=== PATIENT | female | born 1995 | race Caucasian/White ===

== ENCOUNTER → 2018-12-31 | Outpatient (CLI) | payer SELFPAY ==
[2018-12-31 20:38] LABS: Chlamydia Trachomatis by PCR Negative (Negative); Neisserai gonorrhoeae by PCR Negative (Negative); Probe Check PASS; Sample Adequacy Control PASS; Specimen Processing Control PASS
[2019-01-05 12:14] LABS: HPV Reflexed? NOT INDICATED
== END | disposition home or self-care (01) ==
PROVIDERS: Referring Provider Obstetrics & Gynecology; Visit Provider Obstetrics & Gynecology
DX: Z11.3 Encounter for screening for infections with a predominantly sexual mode of transmission (principal); Z12.4 Encounter for screening for malignant neoplasm of cervix
CPT/HCPCS: 87491; 87591; 87624; 88175; G0145

== ENCOUNTER → 2019-01-31 | Outpatient (CLI) | payer OTHER, SELFPAY ==
[2016-05-04 07:36] VITALS: BMI 39.8
[2019-01-31 13:33] LABS: Absolute Lymphocyte Count 1.36 X10^3/uL (0.83-4.51); Absolute Neutrophil Count 4.4 X10^3/uL (2.0-7.7); Basophil# 0.02 X10^3/uL; Basophil% 0.3 % (0-1); Eosinophil# 0.04 X10^3/uL; Eosinophils% 0.6 % (0-5); Hematocrit 43.2 % (37-47); Hemoglobin 14.4 g/dL (12.0-15.0); Lymphocyte # 1.36 X10^3/ul (4.0); Lymphocyte % 21.8 % (19-41); Mean Corp Hgb Conc 33.3 g/dL (32-36); Mean Corpuscular Hgb 30.1 pg (27.0-32.0); Mean Corpuscular Volume 90.4 fL (81-99); Mean Platelet Vol. 10.1 fl (6.2-12.0); Monocyte# 0.39 X10^3/uL; Monocyte% 6.2 % (0-10); NRBC Flagged by Analyzer 0 % (0-5); Neutrophil # 4.43 X10^3/uL (2.7-7.7); Neutrophil % 70.9 % (47-70); Platelet Count 255 K/mm3 (150-450); RBC Distribution Width CV 13.2 % (11.6-14.6); RBC Distribution Width SD 43.9 fl (35.1-43.9); Red Blood Count 4.78 M/mm3 (4.2-5.4); White Blood Count 6.3 K/mm3 (4.4-11.0)
[2019-01-31 13:37] LABS: Color, Urine Yellow (Yellow); Glucose, Dipstick Normal (Normal); Ketone-Dipstick Negative (Negative); Leukocyte Esterase-Dipstick Negative /ul (Negative); Nitrite-Dipstick Negative (Negative); Occult Blood-Urine 50 /ul (Negative); Protein-Dipstick Negative (Negative); Urine Bilirubin Dipstick Negative (Negative); Urine Clarity Clear (Clear); Urine Urobilinogen Normal (Normal)
[2019-01-31 13:50] LABS: Amphetamine Urine VISTA NEGATIVE (<1000 ng/mL); Barbiturate Urine VISTA NEGATIVE (< 200 ng/mL); Benzodiazepine Urine VISTA NEGATIVE (< 200 ng/mL); Cocaine Urine VISTA NEGATIVE (< 300 ng/mL); Ecstacy Urine VISTA NEGATIVE (< 500 ng/mL); Methadone Urine VISTA NEGATIVE (< 300 ng/mL); PCP Urine VISTA NEGATIVE (< 25 ng/mL); THC Urine VISTA NEGATIVE (< 50 ng/mL); Vista UDS pH Range 5
[2019-01-31 13:53] LABS: Thyroid Stim Hormone (TSH) 4.06 uIU/mL (0.358-3.74)
[2019-01-31 14:36] LABS: HIV - WCH Non-Reactive (Nonreactive); Hepatitis B Surface Antigen Non-Reactive (Nonreactive); Hepatitis C Antibody Non-Reactive (Nonreactive); Rubella IgG 84.4 IU/mL
[2019-01-31 17:35] LABS: T4 Free Direct 0.82 ng/dL (0.76-1.46)
[2019-02-04 01:54] LABS: Prenatal RPR NONREACTIVE (NONREACTIVE)
[2019-02-04 16:01] LABS: Anti-Thyroglobulin AB < 1.0 IU/mL (0.0-0.9); Thyroglobulin, Serum Qt. 55.2 ng/mL (1.5-38.5); Thyroid Peroxidase AB 293 IU/mL (0-34)
== END | disposition home or self-care (01) ==
PROVIDERS: Visit Provider Obstetrics & Gynecology
DX: O28.8 Other abnormal findings on antenatal screening of mother (principal); Z3A.00 Weeks of gestation of pregnancy not specified
CPT/HCPCS: 36415; 80307; 81002; 82306; 84432; 84439; 84443; 84481; 85025; 86376; 86703; 86762; 86800; 86803; 87340

== ENCOUNTER → 2019-03-31 10:29 | Outpatient (CLI) | payer SELFPAY ==
[2016-05-04 07:36] VITALS: BMI 39.8
[2019-03-31 11:37] LABS: Free T3 2.2 pg/mL (2.18-3.98); T4 Free Direct 1.01 ng/dL (0.76-1.46); T4 Total, Thyroxin 14.6 ug/dL (4.8-13.9); Thyroid Stim Hormone (TSH) 1.85 uIU/mL (0.358-3.74)
[2019-04-04 20:11] LABS: Anti-Thyroglobulin AB < 1.0 IU/mL (0.0-0.9); Thyroglobulin, Serum Qt. 22.7 ng/mL (1.5-38.5); Thyroid Peroxidase AB 176 IU/mL (0-34)
== END ==
PROVIDERS: Visit Provider Obstetrics & Gynecology
DX: E03.9 Hypothyroidism, unspecified (principal)
CPT/HCPCS: 36415; 84432; 84436; 84439; 84443; 84481; 86376; 86800

== ENCOUNTER → 2019-05-19 09:02 | Outpatient (CLI) | payer SELFPAY ==
[2019-05-19 11:12] LABS: Hematocrit 40.2 % (37-47); Hemoglobin 13.1 g/dL (12.0-15.0); Mean Corp Hgb Conc 32.6 g/dL (32-36); Mean Corpuscular Hgb 30.4 pg (27.0-32.0); Mean Corpuscular Volume 93.3 fL (81-99); Mean Platelet Vol. 9.8 fl (6.2-12.0); Platelet Count 253 K/mm3 (150-450); RBC Distribution Width SD 44.6 fl (35.1-43.9); Red Blood Count 4.31 M/mm3 (4.2-5.4); White Blood Count 8.9 K/mm3 (4.4-11.0)
[2019-05-19 11:32] LABS: Glucose Challenge Gest 1H 50g 139 mg/dL (70-140); Thyroid Stim Hormone (TSH) 1.46 uIU/mL (0.358-3.74)
[2019-05-19 11:33] LABS: Vitamin D,25 Hydroxy 17.7 ng/mL (29.95-100.01)
== END ==
PROVIDERS: Referring Provider Obstetrics & Gynecology; Visit Provider Obstetrics & Gynecology
DX: Z34.83 Encounter for supervision of other normal pregnancy, third trimester (principal); E55.9 Vitamin D deficiency, unspecified
CPT/HCPCS: 36415; 82306; 82950; 84443; 85027

== ENCOUNTER → 2019-07-06 12:02 | Outpatient (CLI) | payer OTHER, SELFPAY ==
[2016-05-04 07:36] VITALS: BMI 39.8
== END ==
PROVIDERS: Visit Provider Obstetrics & Gynecology
DX: Z36.85 Encounter for antenatal screening for Streptococcus B (principal)
CPT/HCPCS: 87081

== ENCOUNTER 2019-07-29 19:20 | Inpatient (IN) | payer SELFPAY ==
[2019-07-29 19:48] VITALS: BP 139/78; PULSE 90; PULSE 97; TEMP 36.8; O2SAT 96
[2019-07-29] MEDS: 0.9% Saline Lock 10 ML Syringe IV (19:55)
--- NOTE | 2019-07-29 20:00 | PCM.HP.OB ---
- Problem List (1) 39 weeks gestation of Status: Acute (2) Gestational hypertension Status: Acute Qualifiers: Trimester: third trimester Qualified Code(s): O13.3 - Gestational [-induced] hypertension without significant proteinuria, third trimester (3) Obesity complicating Status: Acute Qualifiers: Trimester: third trimester Qualified Code(s): O99.213 - Obesity complicating , third trimester History Date of Admission: 07/29/19 Final AMAURY: 08/03/19 Final AMAURY Source: US <20 weeks Gestational age: 39 Weeks and 2 Days History of this : This is a 23 year-old, G [1], P [], at 39 2/7 weeks gestational age with gestational hypertension, BMI 49 presenting for scheduled induction of labor. Medical History: Medical History (This Medical Record has been edited. 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 Allergies No Known Allergies Allergy (Verified 01/04/19 08:18) Home Medications: Home Medications Famotidine [Pepcid] 20 mg PO BID #14 tablet 05/04/16 Hydrocodone Bitart/Apap 5-325 [[place] 5/325] 1 - 2 tablet PO Q4H PRN PRN #12 tablet 05/04/16 Smoking Status: Never smoker Alcohol: None Number of Fetus(es): 1 NST - FHR Rate Baby A Baseline: 150 Variability:: Moderate Accelerations:: 15 x 15 Decelerations:: None NST Reactive:: Yes FHR Category:: Category I Uterine Activity:: 2-4/10 min History Past Pregnancies: Past Pregnancies Delivery Date Name GA/ Weeks Outcome Route Wt Sex Labor Length Anesthesia Delivery Location Provider FOB Labs: Mom's Problem List Problem Status Onset Code 39 weeks gestation of Acute Z3A.39 Gestational hypertension Acute O13.9 Obesity complicating Acute O99.210 Mom's Labs & Results 07/29/19 07/29/19 19:55 19:55 WBC 9.9 RBC 4.02 L Hgb 12.4 Hct 37.4 MCV 93.0 MCH 30.8 MCHC 33.2 RDW Std Deviation 44.6 H RDW Coeff of [place] 13.1 Plt Count 260 MPV 10.1 Immature Gran % (Auto) 0.300 Neut % (Auto) 76.9 H Lymph % (Auto) 17.0 L [place] % (Auto) 5.4 Eos % (Auto) 0.2 Baso % (Auto) 0.2 Absolute Neuts (auto) 7.6 Absolute Lymphs (auto) 1.69 Nucleated RBC % 0 Blood Type A POSITIVE Antibody Screen NEGATIVE Course Did the patient receive Yes care? Labs Blood Type: A RH: POSITIVE RPR/VDRL/Syphilis Nonreactive Rubella status Immune HbSAg Negative Date Done: 01/31/19 Chlamydia Negative Gonorrhea Negative HIV/AIDS Non-Reactive Group B Strep: Negative Current Obstetrical History Gestational Diabetes No Incompetent Cervix No Infertility No IUGR No Macrosomia No Hypertension/Pre-eclampsia Yes: no medications Placenta Previa/Abruption Yes: marginal previa that is resolved PTL/PROM No Uterine anomaly No Oligohydramnios No Polyhydramnios No Multiple gestation No Past Medical History Asthma No Diabetes No Hypertension No Heart disease No Mitral valve prolapse No Neurologic/Seizure disorder/ No Migraines Kidney disease No Liver disease No Varicosities No Clotting disorders/Hx of DVT No Thyroid Dysfunction Yes: hypothyroidism - autoimmune Other medical diseases No Psychiatric disorders No Major trauma No Abnormal PAP smear No Sleep apnea No Mammogram in the last 2 years No Social History Marital Status: Alleged father Jimy Hx Smoking No Smoking Status Never smoker Physical Exam Vitals: Vital Signs Temp Pulse BP Pulse Ox 98.3 F 90 139/78 H 96 07/29/19 19:48 07/29/19 19:48 07/29/19 19:48 07/29/19 19:48 General: Alert, Oriented x3, Cooperative, No apparent distress HEENT: Atraumatic, Normocephalic Cardiovascular: Regular rate, Regular Rhythm Lungs: Clear to auscultation, Normal air movement Abdomen: Soft, Non Tender, Non-Distended, Gravid Extremities:: No edema Neurological: Neuro grossly intact OUTPATIENT FACILITY PHYSICAL THERAPIST: Normal external genitalia Estimated gestational size: Appropriate for gestational size Presentation: Cephalic Cervix Dilation (cm): 1 Station: -3 Effacement (%): 0 Assessment/Plan All Active Problems (This Medical Record has been edited. Action required.) 39 weeks gestation of (Acute) Gestational hypertension (Acute) Obesity complicating (Acute) This is a 23 year-old, G [1], P [], at 39 2/7 weeks gestational age, Cat I FHR -Cytotec, pastor bulb
[2019-07-29 20:19] LABS: Absolute Lymphocyte Count 1.69 X10^3/uL (0.83-4.51); Absolute Neutrophil Count 7.6 X10^3/uL (2.0-7.7); Basophil# 0.02 X10^3/uL; Basophil% 0.2 % (0-1); Eosinophil# 0.02 X10^3/uL; Eosinophils% 0.2 % (0-5); Hematocrit 37.4 % (37-47); Hemoglobin 12.4 g/dL (12.0-15.0); Lymphocyte # 1.69 X10^3/ul (4.0); Mean Corp Hgb Conc 33.2 g/dL (32-36); Mean Corpuscular Hgb 30.8 pg (27.0-32.0); Mean Platelet Vol. 10.1 fl (6.2-12.0); Monocyte# 0.54 X10^3/uL; Monocyte% 5.4 % (0-10); NRBC Flagged by Analyzer 0 % (0-5); Neutrophil # 7.64 X10^3/uL (2.7-7.7); Neutrophil % 76.9 % (47-70); Platelet Count 260 K/mm3 (150-450); RBC Distribution Width CV 13.1 % (11.6-14.6); RBC Distribution Width SD 44.6 fl (35.1-43.9); Red Blood Count 4.02 M/mm3 (4.2-5.4); White Blood Count 9.9 K/mm3 (4.4-11.0)
[2019-07-29 20:23] VITALS: BMI 49.1
[2019-07-29] MEDS: 0.9% Normal Saline Single 100 ML IV.SOLN. IY (20:36)
[2019-07-29] MEDS: miSOPROStol 25 MCG TABLET VAGINAL (20:37)
[2019-07-30] VITALS (64 sets, daily range): BP systolic 115–156; BP diastolic 59–84; PULSE 68–109; RESP 18; TEMP 36.3–37.2; O2SAT 79–100
[2019-07-30] MEDS: Oxytocin 30 units/NS 500 ml 30 UNITS/500 ML IV.SOLN IV (00:45)
[2019-07-30] MEDS: Lactated Ringers 1,000 ML 50 ML IV ×2 (00:45→12:16)
[2019-07-30] MEDS: 0.9% Saline Lock 10 ML Syringe IV (00:45)
[2019-07-30] MEDS: Lactated Ringers 500 ML 999 ML IV (07:15)
--- NOTE | 2019-07-30 07:16 | PCM.PN.BLA ---
Progress Note LABOR PROGRESS NOTE Contractions are mild to moderate. No complaints. AVSS GEN - NAD, AAO x 3 FHR 155, moderate variability, + accelerations, + variable decelerations TOCO 4/ 10 min A/P: 23yo G1 @ 39 3/7wga, gestational HTN, IOL, Cat II FHR -Maternal and statuses overall reassuring -Amniotomy performed, IUPC placed -Continue pitocin as tolerated by mother and fetus STROKE Vital Signs/Narrative: Vital Signs Temp Pulse BP Pulse Ox 07/30/19 07:05 75 132/79 H 07/30/19 06:08 97.9 F 74 125/75 H 97 07/30/19 05:11 97.4 F L 85 121/75 H 97 07/30/19 04:06 97.9 F 78 134/73 H 97
[2019-07-30] MEDS: fentaNYL-bupivacaine (epidural) 100 ML BAG EPIDURAL ×2 (08:30→13:01)
--- NOTE | 2019-07-30 11:57 | PCM.PN.BLA ---
Progress Note LABOR PROGRESS NOTE No complaints, comfortable with epidural. AVSS GEN - NAD, AAO x 3 FHR 160, moderate variability, no accelerations, + variable deceleration TOCO 3/10 min SVE 4/80/-3, caput present - unable to palpate fontanelles US performed confirming cephalic presentation, OP A/P: 23yo G1 @ 39 3/7wga IOL with gHTN, Cat II FHR -ISE placed -Start amnioinfusion -Pitocin held -Monitor closely STROKE Vital Signs/Narrative: Vital Signs Temp Pulse BP Pulse Ox 07/30/19 11:00 97.9 F 87 131/65 H 07/30/19 10:23 75 124/59 H 100 07/30/19 09:14 68 121/65 H 100 07/30/19 09:09 71 100 07/30/19 09:08 70 130/61 H 07/30/19 09:04 87 100 07/30/19 09:03 71 126/59 H 07/30/19 08:59 77 100 07/30/19 08:57 77 125/62 H 07/30/19 08:54 74 127/63 H 100 07/30/19 08:48 81 133/62 H 95 07/30/19 08:47 79 07/30/19 08:43 88 156/83 H 07/30/19 08:42 77 92 07/30/19 08:40 74 149/74 H 07/30/19 08:38 97 129/77 H 07/30/19 08:37 70 93 07/30/19 08:33 86 141/71 H 07/30/19 08:31 78 99 07/30/19 08:14 92 99
[2019-07-30] MEDS: Amnioinfusion- 0.9% NS 1,000 ML IV.SOLN. 300 ML INTRA-UTER (12:01)
[2019-07-30] MEDS: Oxytocin 30 units/NS 500 ml 30 UNITS/500 ML IV.SOLN 334 UNITS IV (15:40)
--- NOTE | 2019-07-30 16:09 | PCM.OPRPT ---
Problem List (1) 39 weeks gestation of Status: Acute (2) Gestational hypertension Status: Acute Qualifiers: Trimester: third trimester Qualified Code(s): O13.3 - Gestational [-induced] hypertension without significant proteinuria, third trimester (3) Obesity complicating Status: Acute Qualifiers: Trimester: third trimester Qualified Code(s): O99.213 - Obesity complicating , third trimester Vaginal Delivery Maternal Presentation: Medically Indicated Induction Method of Induction: Pitocin, Tucker Bulb, Amniotomy, Cytotec Medical Reason for Induction: Gestational Hypertension Amniotic Membrane Rupture Type: Artificial Rupture of Membrane time: 07/30/19 0659h Amniotic Fluid Description: Clear Final AMAURY: 08/03/19 Final AMAURY Source: US <20 weeks Gestational age: 39 Weeks and 3 Days doctor who attended delivery (if requested by OB): Feli Cuello Date of Procedure: 07/30/19 Pre-Operative Diagnosis: 39 3/7wga, gestational hypertension Post-Operative Diagnosis: 39 3/7wga, gestational hypertension Surgery/ Procedure Performed: Spontaneous Vaginal Delivery Anesthesiologist: Ana Hudson Type of Anesthesia: Epidural Description of Procedure: Patient was FD/+3 station on my arrival. She pushed to deliver a vigorous female over an intact perineum. The was placed on the maternal abdomen and further attended by nursery personnel. The cord was doubly clamped and cut. Cord gases were obtained. The placenta delivered spontaneously and appeared intact on inspection. A vaginal laceration was repaired with 3-0 Vicryl Rapide. Excellent hemostasis present. Sponge and needle counts correct x 2. Presentation: Vertex Placental Delivery Description: Spontaneous Placenta Disposition: [facility] Cord Vessel Description: 3 Vessels Nuchal Cord Compression: Without compression Cord Gases drawn per routine: ABG, VBG Cord Entanglement: None Drain: Tucker to straight drain Estimated Blood Loss: 350 ml A gender: Female (1 minute): 8 (5 minute): 9 Episiotomy Description: None Laceration: None Medications given after delivery: IV Pitocin Complications: None
[2019-07-30] MEDS: Acetaminophen 500 MG Tablet 1000 MG PO (18:07)
--- NOTE | 2019-07-30 20:39 | NURSING ---
areas of reddness is from novii telemetry unit used in labor
[2019-07-30] MEDS: Senna/Docusate Sodium 1 Tablet PO (21:38)
[2019-07-31 04:50] VITALS: BP 136/88; PULSE 89; RESP 18; TEMP 36.7
[2019-07-31] MEDS: Levothyroxine 50 MCG Tablet PO (05:49)
[2019-07-31] MEDS: Acetaminophen 500 MG Tablet 1000 MG PO (06:19)
[2019-07-31 09:12] VITALS: BP 114/51; PULSE 80; RESP 16; TEMP 36.6
--- NOTE | 2019-07-31 10:23 | PCM.PN.OB ---
Patient Problems: Active and Suspected Problems (This Medical Record has been edited. Action required.) 39 weeks gestation of (Acute) Gestational hypertension (Acute) Obesity complicating (Acute) Subjective: No issues overnight. , working on latch and feeding. Patient is sore, but denies significant pain. She is out of bed, voiding w/o difficulty. Denies heavy lochia. Objective: avss - Physical Exam Vitals/I&O's: Vital Signs Temp Pulse Resp BP Pulse Ox 97.8 F 80 16 114/51 L 100 07/31/19 09:12 07/31/19 09:12 07/31/19 09:12 07/31/19 09:12 07/30/19 17:52 Oxygen Delivery Method Room Air Weight: 129.727 kg Body Mass Index (BMI) 49.1 Intake and Output for Last 24 Hours 07/29/19 07/30/19 07/31/19 23:59 23:59 23:59 Intake Total 2034.03 / 2034.03 Output Total 700 / 700 200 / 200 Balance 1334.03 / 1334.03 -200 / -200 General: Alert, Oriented x3, Cooperative, No apparent distress HEENT: Atraumatic, Normocephalic Lungs: Clear to auscultation, Normal air movement Cardiovascular: Regular rate, Regular Rhythm, Normal S1, Normal S2 Abdomen: Soft, Non Tender, Non-Distended, - - fundus firm and nontender, lochia scant Extremities: No Calf Tenderness, - - +1 b/l LE edema Neurological: Neuro grossly intact Psych/Mental Status: Normal Affect, Appropriate, Alert and oriented to time, place, person, mood and affect Current Medications Acetaminophen (Tylenol) 325 - 650 mg PO Q4H PRN PRN PRN Reason: Pain Score 1-3/10 Acetaminophen (Tylenol) 1,000 mg PO Q8H PRN PRN PRN Reason: Pain Score 1-3/10 Last Admin: 07/31/19 06:19 Dose: 1,000 mg Documented by: Bisacodyl (Dulcolax) 10 mg RECTAL UD PRN PRN Reason: If no BM Dibucaine (Dibucaine) 1 applic TOPICAL TID PRN PRN; Protocol PRN Reason: Discomfort Hydrocortisone (Hytone) 1 applic TOPICAL TID PRN PRN; Protocol PRN Reason: Discomfort Levothyroxine Sodium (Synthroid) 50 mcg PO DAILY@0600 ALBERTO Last Admin: 07/31/19 05:49 Dose: 50 mcg Documented by: Methylergonovine Maleate (Methergine) 0.2 mg IM X1 PRN PRN Reason: Excess bleeding/uterine atony Multivit/Folic Acid/Iron (Prenatabs Fa) 1 tablet PO DAILY@1200 ALBERTO Senna/Docusate Sodium (Senokot-S, Lauren-Colace) 1 - 2 tablet PO DAILY PRN PRN PRN Reason: Constipation Last Admin: 07/30/19 21:38 Dose: 2 tablet Documented by: Simethicone (Mylicon) 80 mg PO PCHS PRN PRN Reason: Indigestion/Stomach pain Sodium Chloride () 5 - 15 ml IV UD PRN PRN Reason: SALINE FLUSH Medical Necessity - Tobacco Use Smoking Status: Never smoker Assessment/Plan All Active Problems (This Medical Record has been edited. Action required.) 39 weeks gestation of (Acute) Gestational hypertension (Acute) Obesity complicating (Acute) This is a 23 year-old, G [1], P [1] PPD#1 s/p doing well. -Rh positive - -Routine care -Discharge home this afternoon if feeds well and is clear for discharge.
[2019-07-31] MEDS: Prenatal Vits Tablet 1 TABLET PO (13:26)
[2019-07-31 13:27] VITALS: BP 133/66; PULSE 90; RESP 18; TEMP 36.5
--- NOTE | 2019-07-31 19:31 | DCINST_ITS ---
Discharge Diet: No Restrictions Discharge Activity: Return to Normal Activity, May Shower, May Take a Tub Bath May resume sexual activity in: 4-6 weeks Lifting Restrictions: 10-20 lb Additional Instructions: If you experience any of the following, contact your healthcare provider. * Bleeding that soaks a pad every hour for 2 hours * Fever 100.4 or higher * Unrelieved incision or abdominal pain * Swelling, redness, discharge or bleeding from your incision or episiotomy site * Your incision begins to separate * Problems urinating (including inability to urinate or burning while urinating). * Visual changes * Severe headache * Flu-like symptoms * Pain or redness in one of both of your breasts * Pain, warmth, tenderness or swelling in your legs, especially the calf area * Frequent nausea and vomiting * Symptoms of depression or anxiety If you experience any of the following, call 911 or go to the nearest Emergency Room. * Chest pain * Problems breathing * Seizure activity * Partial or complete paralysis of a body part, slurred speech, weakness or drooping of the face, or a sudden inability to walk or hold your balance Allergies/Adverse Reactions: Allergies No Known Allergies Allergy (Verified 07/29/19 21:27) Medications to take at Discharge Cholecalciferol (Vitamin D3) [Vitamin D3] 400 unit PO DAILY 07/29/19 Levothyroxine [Synthroid] 50 mcg PO DAILY 07/29/19 Vit No.130/Iron/Folic [ Tablet] 1 tab PO DAILY 07/29/19 Please Follow Up With: Vaishali Ornelas MD - Call to schedule a telehealth visit When: 2 weeks Primary Care Physician: Care Physician,No Primary [Primary Care Provider] - Test Results: Test results from this visit will be discussed in further detail at your follow- up appointment, if applicable.
--- NOTE | 2019-07-31 19:31 | PCM.DCVAG ---
Discharge Diet: No Restrictions Discharge Activity: Return to Normal Activity, May Shower, May Take a Tub Bath May resume sexual activity in: 4-6 weeks Lifting Restrictions: 10-20 lb Additional Instructions: If you experience any of the following, contact your healthcare provider. Bleeding that soaks a pad every hour for 2 hours Fever 100.4 or higher Unrelieved incision or abdominal pain Swelling, redness, discharge or bleeding from your incision or episiotomy site Your incision begins to separate Problems urinating (including inability to urinate or burning while urinating). Visual changes Severe headache Flu-like symptoms Pain or redness in one of both of your breasts Pain, warmth, tenderness or swelling in your legs, especially the calf area Frequent nausea and vomiting Symptoms of depression or anxiety If you experience any of the following, call 911 or go to the nearest Emergency Room. Chest pain Problems breathing Seizure activity Partial or complete paralysis of a body part, slurred speech, weakness or drooping of the face, or a sudden inability to walk or hold your balance Allergies/Adverse Reactions: Allergies No Known Allergies Allergy (Verified 07/29/19 21:27) Medications to take at Discharge Cholecalciferol (Vitamin D3) [Vitamin D3] 400 unit PO DAILY 07/29/19 Levothyroxine [Synthroid] 50 mcg PO DAILY 07/29/19 Vit No.130/Iron/Folic [ Tablet] 1 tab PO DAILY 07/29/19 Please Follow Up With: Vaishali Ornelas MD - Call to schedule a telehealth visit When: 2 weeks Primary Care Physician: Care Physician,No Primary [Primary Care Provider] - Test Results: Test results from this visit will be discussed in further detail at your follow-up appointment, if applicable.
[2019-07-31 19:45] VITALS: BP 136/74; PULSE 88; RESP 17; TEMP 37
== END 2019-07-31 20:05 | disposition home or self-care (01) | DRG 807 ==
PROVIDERS: Admitting Provider Obstetrics & Gynecology; Referring Provider Obstetrics & Gynecology; Visit Provider Obstetrics & Gynecology
DX: O13.4 Gestational [pregnancy-induced] hypertension without significant proteinuria, complicating childbirth (principal); Z37.0 Single live birth; E66.9 Obesity, unspecified; O99.214 Obesity complicating childbirth; Z3A.39 39 weeks gestation of pregnancy; E03.9 Hypothyroidism, unspecified; O99.284 Endocrine, nutritional and metabolic diseases complicating childbirth; O76 Abnormality in fetal heart rate and rhythm complicating labor and delivery; O71.4 Obstetric high vaginal laceration alone
CPT/HCPCS: 59025; 59050; 85025; 86850; 86900; 86901; 99218; J7030; J7120; A4216; G0378

== ENCOUNTER → 2019-09-13 14:37 | Outpatient (CLI) | payer OTHER, SELFPAY ==
[2019-09-13 15:49] LABS: T4 Free Direct 1.11 ng/dL (0.76-1.46); Thyroid Stim Hormone (TSH) 1.53 uIU/mL (0.358-3.74)
== END ==
PROVIDERS: Visit Provider Obstetrics & Gynecology
DX: E03.9 Hypothyroidism, unspecified (principal)
CPT/HCPCS: 36415; 84439; 84443; 84481

== ENCOUNTER → 2020-01-03 10:08 | Outpatient (CLI) | payer OTHER, SELFPAY ==
[2020-01-03 11:51] LABS: T3 Total - Triiodothyronine 1.13 ng/mL (0.6-1.81)
[2020-01-03 11:56] LABS: Free T3 2.7 pg/mL (2.18-3.98); T4 Free Direct 1.04 ng/dL (0.76-1.46); Thyroid Stim Hormone (TSH) 1.89 uIU/mL (0.358-3.74)
== END ==
PROVIDERS: Visit Provider Obstetrics & Gynecology
DX: E03.9 Hypothyroidism, unspecified (principal)
CPT/HCPCS: 36415; 84439; 84443; 84480; 84481

== ENCOUNTER → 2022-04-17 | Outpatient (CLI) | payer OTHER, SELFPAY ==
[2022-04-17 16:19] LABS: Absolute Lymphocyte Count 1.56 X10^3/uL (0.83-4.51); Absolute Neutrophil Count 4.8 X10^3/uL (2.0-7.7); Basophil# 0.03 X10^3/uL; Basophil% 0.4 % (0-1); Eosinophil# 0.04 X10^3/uL; Eosinophils% 0.6 % (0-5); Hematocrit 40.8 % (37-47); Hemoglobin 14.2 g/dL (12.0-15.0); Lymphocyte # 1.56 X10^3/ul (0.83-4.51); Lymphocyte % 23.1 % (19-41); Mean Corp Hgb Conc 34.8 g/dL (32-36); Mean Corpuscular Hgb 31.2 pg (27.0-32.0); Mean Corpuscular Volume 89.7 fL (81-99); Mean Platelet Vol. 10.2 fl (6.2-12.0); Monocyte# 0.33 X10^3/uL; Monocyte% 4.9 % (0-10); NRBC Flagged by Analyzer 0 % (0-5); Neutrophil # 4.76 X10^3/uL (2.7-7.7); Neutrophil % 70.7 % (47-70); Platelet Count 267 K/mm3 (150-450); RBC Distribution Width CV 12.4 % (11.6-14.6); RBC Distribution Width SD 40.8 fl (35.1-43.9); Red Blood Count 4.55 M/mm3 (4.2-5.4); White Blood Count 6.7 K/mm3 (4.4-11.0)
[2022-04-17 17:17] LABS: HIV - WCH Non-Reactive (Nonreactive); Hepatitis B Surface Antigen Non-Reactive (Nonreactive); Hepatitis C Antibody Non-Reactive (Nonreactive); Rubella IgG Reactive (Nonreactive); Syphilis Antibodies Non-reactive
[2022-04-19 20:19] LABS: V-Zoster IgG (Immunity) 1434 index (Immune >165)
[2022-04-29 18:31] LABS: HPV APTIMA, High Risk Negative (Negative)
== END | disposition home or self-care (01) ==
PROVIDERS: Visit Provider Student in an Organized Health Care Education/Training Program
DX: Z34.81 Encounter for supervision of other normal pregnancy, first trimester (principal)
CPT/HCPCS: 85025; 86703; 86762; 86780; 86787; 86803; 87086; 87088; 87340; 87624; 88175; G0145

== ENCOUNTER → 2022-08-12 | Outpatient (CLI) | payer SELFPAY ==
[2022-08-12 11:01] LABS: Hematocrit 39.6 % (37-47); Hemoglobin 12.8 g/dL (12.0-15.0); Mean Corp Hgb Conc 32.3 g/dL (32-36); Mean Corpuscular Hgb 31.1 pg (27.0-32.0); Mean Corpuscular Volume 96.1 fL (81-99); Mean Platelet Vol. 9.7 fl (6.2-12.0); Platelet Count 269 K/mm3 (150-450); RBC Distribution Width CV 13.7 % (11.6-14.6); RBC Distribution Width SD 48.3 fl (35.1-43.9); Red Blood Count 4.12 M/mm3 (4.2-5.4); White Blood Count 7.9 K/mm3 (4.4-11.0)
[2022-08-12 11:20] LABS: Glucose Challenge Gest 1H 50g 130 mg/dL (70-140)
[2022-08-12 11:43] LABS: Syphilis Antibodies Non-reactive
== END | disposition home or self-care (01) ==
LOC: WOBLAB 09:04
PROVIDERS: Visit Provider Student in an Organized Health Care Education/Training Program
DX: Z34.82 Encounter for supervision of other normal pregnancy, second trimester (principal)
CPT/HCPCS: 36415; 82950; 85027; 86780

== ENCOUNTER → 2022-10-17 | Outpatient (CLI) | payer OTHER, SELFPAY ==
[2022-10-17 10:09] LABS: Absolute Lymphocyte Count 1.29 X10^3/uL (0.83-4.51); Absolute Neutrophil Count 4.8 X10^3/uL (2.0-7.7); Basophil# 0.02 X10^3/uL; Basophil% 0.3 % (0-1); Eosinophil# 0.05 X10^3/uL; Eosinophils% 0.8 % (0-5); Hemoglobin 12.7 g/dL (12.0-15.0); Lymphocyte # 1.29 X10^3/ul (0.83-4.51); Lymphocyte % 19.4 % (19-41); Mean Corp Hgb Conc 32.6 g/dL (32-36); Mean Corpuscular Hgb 30.6 pg (27.0-32.0); Monocyte# 0.44 X10^3/uL; Monocyte% 6.6 % (0-10); NRBC Flagged by Analyzer 0 % (0-5); Neutrophil % 72.3 % (47-70); Platelet Count 237 K/mm3 (150-450); RBC Distribution Width CV 13.2 % (11.6-14.6); RBC Distribution Width SD 45.1 fl (35.1-43.9); Red Blood Count 4.15 M/mm3 (4.2-5.4); White Blood Count 6.6 K/mm3 (4.4-11.0)
== END | disposition home or self-care (01) ==
PROVIDERS: Visit Provider Student in an Organized Health Care Education/Training Program
DX: Z34.83 Encounter for supervision of other normal pregnancy, third trimester (principal)
CPT/HCPCS: 36415; 85025; 87081

== ENCOUNTER 2022-11-16 03:00 | Inpatient (IN) | payer SELFPAY ==
[2022-11-15 22:08] VITALS: BMI 45.5
[2022-11-15 22:11] VITALS: PULSE 81; O2SAT 98
[2022-11-15 22:17] VITALS: PULSE 93; O2SAT 98
[2022-11-15 22:18] VITALS: TEMP 36.8
[2022-11-15 22:20] VITALS: BP 125/86; PULSE 98
[2022-11-15 22:21] VITALS: PULSE 98; TEMP 36.8; O2SAT 98
[2022-11-16] VITALS (80 sets, daily range): BP systolic 97–201; BP diastolic 51–133; PULSE 68–123; RESP 14–16; TEMP 36–37.3; O2SAT 89–100
[2022-11-16] MEDS: Lactated Ringers 1,000 ML 50 ML IV (03:25)
[2022-11-16 03:42] LABS: Absolute Lymphocyte Count 1.45 X10^3/uL (0.83-4.51); Absolute Neutrophil Count 7.5 X10^3/uL (2.0-7.7); Basophil# 0.02 X10^3/uL; Basophil% 0.2 % (0-1); Eosinophil# 0.03 X10^3/uL; Eosinophils% 0.3 % (0-5); Hematocrit 38.4 % (37-47); Hemoglobin 12.5 g/dL (12.0-15.0); Lymphocyte # 1.45 X10^3/ul (0.83-4.51); Lymphocyte % 15.2 % (19-41); Mean Corp Hgb Conc 32.6 g/dL (32-36); Mean Corpuscular Hgb 30.6 pg (27.0-32.0); Mean Corpuscular Volume 93.9 fL (81-99); Mean Platelet Vol. 10.4 fl (6.2-12.0); Monocyte# 0.49 X10^3/uL; Monocyte% 5.1 % (0-10); NRBC Flagged by Analyzer 0 % (0-5); Neutrophil # 7.53 X10^3/uL (2.7-7.7); Neutrophil % 78.8 % (47-70); Platelet Count 232 K/mm3 (150-450); RBC Distribution Width CV 13.3 % (11.6-14.6); RBC Distribution Width SD 45.9 fl (35.1-43.9); Red Blood Count 4.09 M/mm3 (4.2-5.4); White Blood Count 9.6 K/mm3 (4.4-11.0)
[2022-11-16] MEDS: LACTATED RINGERS 500 ML 999 ML IV ×2 (06:34→08:30)
[2022-11-16] MEDS: fentaNYL-bupivacaine (epidural) 100 ML BAG EPIDURAL (07:44)
--- NOTE | 2022-11-16 07:50 | PCM.HP.BLA ---
History and Physical Date of Admission: 11/16/22 History present illness: 27-year-old at 40/5 weeks, AMAURY 11/11/2022 by LMP, admitted for labor. Patient reports contractions. Denies leaking of fluid, vaginal bleeding. Reports movement. Denies headache or vision changes, chest pain or shortness of breath, nausea or vomiting, diarrhea constipation. is complicated: History of gestational hypertension prior , class III obesity Obstetric history: G1: 39-week G2: Current Past medical history: Class III obesity Medications: vitamin Past surgical history: [place] tooth extraction Allergies: No known drug allergies Social history: Denies smoking, alcohol use, drug use Family history: Denies history DVT or PE Review of systems: Besides above pertinent positives a full review of systems was performed and found to be negative Physical exam: Vitals:Blood pressure 98/53, heart rate 112, oxygen saturation 98% on room air, temp 97.3 ?F General: Normal-appearing no acute distress HEENT: Normocephalic/atraumatic no cervical of adenopathy Cardiac/respiratory: No use of accessory muscles, nonlabored breathing Abdomen: Soft, nontender, gravid Extremities: No peripheral edema normal peripheral pulses Psych: Normal affect normal demeanor nonpressured speech CE: 6/75/-3 AROM clear fluid FHR: 135/mod earnest/+accel/no decel [place]: q4 min Assessment and plan: 27-year-old at 40/5 weeks, AMAURY 11/11/2022 by LMP, admitted for labor. is complicated by: History of gestational hypertension prior , class III obesity. ?Admit for labor. ? GBS negative ? Epidural when patient desires ? Continue expectant management at this time
[2022-11-16] MEDS: Lactated Ringers 1,000 ML 200 ML IV (08:41)
[2022-11-16] MEDS: Oxytocin 15 Units/NS 250ml 15 UNITS/250 ML IV.SOLN 83 UNITS IV (12:07)
[2022-11-16] MEDS: Oxytocin 10 UNITS/ML Vial IM (12:08)
--- NOTE | 2022-11-16 12:14 | EX.PCM.OBRPT ---
Maternal Data Information Final AMAURY: 11/11/22 Vaginal Delivery Operative Information Date of Procedure: 11/16/22 Pre-Operative Diagnosis: [place] intrauterine Post-Operative Diagnosis: Same Surgery / Procedure Performed: Spontaneous Vaginal Delivery Type of Anesthesia: Epidural Estimated Blood Loss: 300 cc Findings Description of Procedure: Spontaneous vaginal delivery of viable male. No nuchal cord. Baby to mom. Cord clamped and cut. Spontaneous delivery of placenta. No lacerations. A Gender: Male (1 minute): 8 (5 minute): 9 Complication Complications: None
[2022-11-16] MEDS: Methylergonovine 0.2 MG/ML Ampul IM (12:40)
[2022-11-16] MEDS: Acetaminophen 500 MG Tablet 1000 MG PO ×2 (13:17→23:57)
[2022-11-16] MEDS: Ondansetron 4 MG/2 ML Vial IV (14:02)
[2022-11-17 04:58] VITALS: BP 117/77; PULSE 82; RESP 15
[2022-11-17] MEDS: Acetaminophen 500 MG Tablet 1000 MG PO (06:15)
[2022-11-17 08:05] VITALS: BP 123/73; PULSE 81; RESP 18; TEMP 36.4
--- NOTE | 2022-11-17 08:08 | PCM.PN.OB ---
Subjective Subjective Feeling well. Lochia minimal. Breast-feeding going well. Objective Data Objective Data Vital Signs: Vital Signs Temp Pulse Resp BP Pulse Ox O2 Del Method 97.0 F L 82 15 117/77 98 Room Air 11/16/22 23:59 11/17/22 04:58 11/17/22 04:58 11/17/22 04:58 11/16/22 14:11 11/17/22 04:58 Oxygen Delivery Method Room Air Weight: 127.913 kg Body Mass Index (BMI) 45.5 Intake & Output: Intake and Output for Last 24 Hours 11/15/22 11/16/22 11/17/22 23:59 23:59 23:59 Intake Total 2870.17 / 2870.17 Output Total 1999 Balance 870.17 / 870.17 Lab / Micro Data Attestation: I reviewed the patient's lab results. 11/16/22 03:25 Labs: Laboratory Results - last 24 hr 11/16/22 03:25: Syphilis Total Ab Cancelled Physical Exam Const alert, oriented x3 and no apparent distress HEENT normocephalic Head and Scalp: atraumatic Neck full ROM Resp normal respiratory effort Cardio regular rate GI normal to inspection, nondistended, normoactive bowel sounds GI Narrative: Uterus 2 cm below umbilicus Back/Spine normal ROM Extremity normal to inspection Extremity Narrative: Minimal pedal edema Neuro no focal motor deficits and no sensory deficits noted Psych mental status grossly normal and affect normal Assessment & Plan (1) Obesity complicating : QUALIFIERS: Trimester: third trimester Qualified Code(s): O99.213 - Obesity complicating , third trimester PLAN: day 1 status post . Breast-feeding. Doing well. Discharge home today. (2) Vaginal delivery:
--- NOTE | 2022-11-17 08:09 | DCINST_ITS ---
Discharge Instructions Diet Discharge Diet: No restrictions Activity Discharge Activity: Return to Normal Activity and May Shower May resume sexual activity in: 4-6 weeks Weight Bearing Status: Weight bearing as tolerated Lifting Restrictions: No greater than 25 pounds Dressing / Incision Call your doctor if you observe: Fever of 101 or Higher, Change in Color, Inability to urinate, Using more than 1 pad per hour, Shortness of breath, Dizziness, Swelling in the ankles, Chest pain and Calf discomfort Follow Up Care Please Follow Up With: Tasneem Carrillo DO When: 6-week visit Test Results: Test results from this visit will be discussed in further detail at your follow- up appointment, if applicable. Discharge Plan Admission Admit Date/Time: 11/16/22 03:00 Primary Reason for Your Visit: Vaginal delivery Attending Provider: Tasneem Carrillo Discharge Orders/Prescriptions Prescriptions: No Action vit no.[id number] 1 EACH tablet 1 tab PO DAILY Disposition Disposition (needs filled in before D/C Order can be placed): Home, Self Care
[2022-11-17] MEDS: Ibuprofen 600 MG Tablet PO (11:58)
[2022-11-17 11:59] VITALS: BP 112/75; PULSE 75; RESP 18; TEMP 36.8
== END 2022-11-17 15:00 | disposition home or self-care (01) | DRG 807 ==
LOC: WPOUT 03:02 → WP 03:02
PROVIDERS: Admitting Provider Student in an Organized Health Care Education/Training Program; Referring Provider Student in an Organized Health Care Education/Training Program; Visit Provider Student in an Organized Health Care Education/Training Program
DX: O99.214 Obesity complicating childbirth (principal); Z37.0 Single live birth; Z3A.40 40 weeks gestation of pregnancy; Z87.59 Personal history of other complications of pregnancy, childbirth and the puerperium
CPT/HCPCS: 59025; 59050; 85025; 86850; 86900; 86901; 99221; J7120; G0378; J2405